=== PATIENT | female | born 1950 | race Caucasian/White ===

== ENCOUNTER 2025-01-09 06:11 | Day surgery (SDC) | payer MEDICARE, BC ==
[~2025-01-09] VITALS: Ht 157.5 cm; Wt 87.5 kg
[2025-01-09] MEDS ORDERED: CeFAZolin Sodium 2,000 MG VIAL ONE (06:33)
[2025-01-09] MEDS ORDERED: FentaNYL Citrate 50 MCG/ML 2 ML Injection ONE (06:39)
[2025-01-09] MEDS ORDERED: Midazolam HCl 1MG / ML 2ML Vial ONE (06:40)
[2025-01-09] MEDS ORDERED: Dexamethasone Sod Phos 10 MG/ML 1ML VIAL ONE (06:40)
[2025-01-09] MEDS ORDERED: Ondansetron HCl 2 MG / ML 2ML Vial ONE (06:40)
[2025-01-09] MEDS ORDERED: Bupivacaine 0.5% W/EPI 1:200000 SDV 30 ML Vial ONE (06:56)
--- NOTE | 2025-01-09 07:11 | NUR ---
01/09/25 0711 Kal Rivera TIME OUT AT 0655. DR BENJAMIN PERFORMS NERVE BLOCK. PT TOLERATED BLOCK WELL. START TIME 0700 STOP TIME 0707.
[2025-01-09] MEDS ORDERED: Rocuronium Bromide 10 MG/ML 5ML Injection IV ONE (07:48)
[2025-01-09] MEDS ORDERED: Sugammadex Sodium 200 MG/2ML SDV (100 MG/ML) ONE (08:44)
[2025-01-09] MEDS ORDERED: Ketorolac Tromethamine 30mg Vial ONE (08:45)
--- NOTE | 2025-01-09 08:48 | NUR ---
01/09/25 0848 Katarzyna Marx REPORT RECEIVED FROM OBINNA AND RN. PT DROWSY BUT AROUSABLE TO VOICE AND FOLLOWS COMMANDS UPON ARRIVAL TO PACU. PATIENT DEEP BREATHING AND COUGHING. DRESSING CLEAN, INTACT. SPLINT IS WET. CAP REFILL ON RIGHT TOES <2 SECONDS AND TOES PINK, WARM, MOIST. PT DENIES PAIN OR NAUSEA AT THIS TIME. NONPRODUCTIVE COUGH NOTED UPON ARRIVAL TO PACU.
--- NOTE | 2025-01-09 08:54 | NUR ---
01/09/25 0854 Katarzyna Marx BROUGHT TO BEDSIDE
[2025-01-09 09:05] VITALS: BP 126/67
== END 2025-01-09 09:30 | disposition home or self-care (01) ==
LOC: ORSCSDS 06:11
PROVIDERS: Podiatrist Foot & Ankle Surgery
PROC: 0SGK04Z Fusion of Right Tarsometatarsal Joint with Internal Fixation Device, Open Approach (ICD-10-PCS; principal; 2025-01-09 07:30)
DX: M21.611 Bunion of right foot (principal); K21.9 Gastro-esophageal reflux disease without esophagitis; E66.9 Obesity, unspecified; Z68.35 Body mass index [BMI] 35.0-35.9, adult; Z85.828 Personal history of other malignant neoplasm of skin
CPT/HCPCS: A6253; C1713; J0690; J1100; J1885; J2250; J2405; J2704; J3010; J7120

== ENCOUNTER 2025-04-02 08:20 | Day surgery (SDC) | payer MEDICARE, BC ==
[~2025-04-02] VITALS: Ht 157.5 cm; Wt 88.6 kg
[~2025-04-02 08:20] MED LIST: Balanced Salt Epinephrine Irrigation Solution 500 mL IR SCH; Moxifloxacin HCL 0.5 MG/0.1 ML 0.4MLSYR LEFTEYE SCH; Ondansetron 4 MG SoluTab MM PRN; PHENYLEPHRINE\\TROPICAMIDE\\TETRACAINE OPHTHALMIC DILATING SOLN LEFTEYE PRN; Povidone-Iodine 450 DROP/30 ML Solution LEFTEYE SCH; Povidone-Iodine 450 DROP/30 ML Solution ONE; Tetracaine HCl/Pf 0.5% Opth Soln 4 ml ONE; Triamcinolone Inj Susp 40 MG / ML 1ML Vial INJ SCH; Triamcinolone Inj Susp 40 MG / ML 1ML Vial ONE
[2025-04-02] MEDS ORDERED: Tetracaine HCl 0.5% Opth Soln 15 ml LEFTEYE ONE (09:20)
--- NOTE | 2025-04-02 09:26 | NUR ---
04/02/25 0926 Yashira Vivas 125/69 BP 86 HR 98% O2 18 RR
[2025-04-02 09:44] VITALS: BP 120/65
== END 2025-04-02 09:51 | disposition home or self-care (01) ==
LOC: ORSCSDS 08:20
PROVIDERS: Ophthalmology
PROC: 08RK3JZ Replacement of Left Lens with Synthetic Substitute, Percutaneous Approach (ICD-10-PCS; principal; 2025-04-02 09:30)
DX: H25.812 Combined forms of age-related cataract, left eye (principal)
CPT/HCPCS: A9270; J3301; V2632

== ENCOUNTER 2025-04-09 08:16 | Day surgery (SDC) | payer MEDICARE, BC ==
[~2025-04-09] VITALS: Ht 157.5 cm; Wt 88.2 kg
[~2025-04-09 08:16] MED LIST changes: -Moxifloxacin HCL 0.5 MG/0.1 ML 0.4MLSYR LEFTEYE SCH; +Moxifloxacin HCL 0.5 MG/0.1 ML 0.4MLSYR RIGHTEYE SCH; -PHENYLEPHRINE\\TROPICAMIDE\\TETRACAINE OPHTHALMIC DILATING SOLN LEFTEYE PRN; +PHENYLEPHRINE\\TROPICAMIDE\\TETRACAINE OPHTHALMIC DILATING SOLN RIGHTEYE PRN; -Povidone-Iodine 450 DROP/30 ML Solution LEFTEYE SCH; +Povidone-Iodine 450 DROP/30 ML Solution RIGHTEYE SCH
--- NOTE | 2025-04-09 08:49 | NUR ---
04/09/25 0849 Colleen Moore PT STATES ANXIETY LEVEL IS 0/10 PT IS ON CONTINUOUS PULSE OX MONITORING CALL LIGHT IN HAND
--- NOTE | 2025-04-09 09:36 | NUR ---
04/09/25 0936 Yashira Friend 118/80 80 16 100
[2025-04-09 10:07] VITALS: BP 133/78
== END 2025-04-09 09:59 | disposition home or self-care (01) ==
LOC: ORSCSDS 08:16
PROVIDERS: Ophthalmology
PROC: 08RJ3JZ Replacement of Right Lens with Synthetic Substitute, Percutaneous Approach (ICD-10-PCS; principal; 2025-04-09 09:30)
DX: H25.811 Combined forms of age-related cataract, right eye (principal); Z96.1 Presence of intraocular lens
CPT/HCPCS: A9270; J3301; V2632